=== PATIENT | male | born 1965 | race Two or more races ===

== ENCOUNTER 2020-07-08 11:17 | Outpatient (CLI) | payer OTHER | END 2020-07-08 11:23 | disposition home or self-care (01) | LOC: NUCLEAR 11:17 | PROVIDERS: ATTEND Specialist | DX: I73.9 Peripheral vascular disease, unspecified (principal); M79.0 Rheumatism, unspecified ==

== ENCOUNTER 2020-07-09 13:50 | Outpatient (CLI) | payer OTHER | END 2020-07-09 14:27 | disposition home or self-care (01) | LOC: LAB 13:50 | PROVIDERS: ATTEND Physical Medicine & Rehabilitation | DX: Z20.828 Contact with and (suspected) exposure to other viral communicable diseases (principal); Z11.59 Encounter for screening for other viral diseases ==

== ENCOUNTER 2020-07-14 11:15 | Outpatient (CLI) | payer OTHER | END 2020-07-14 12:00 | disposition home or self-care (01) | LOC: MRI 11:15 | PROVIDERS: ATTEND Physical Medicine & Rehabilitation | DX: G93.89 Other specified disorders of brain (principal) | CPT/HCPCS: 70551 ==

== ENCOUNTER → 2020-07-22 | Outpatient (CLI) | payer OTHER | END | disposition home or self-care (01) | LOC: MRI 10:46 | PROVIDERS: ATTEND Dentist Oral and Maxillofacial Surgery | DX: M48.02 Spinal stenosis, cervical region (principal); M50.20 Other cervical disc displacement, unspecified cervical region | CPT/HCPCS: 72141 ==

== ENCOUNTER → 2020-07-28 | Outpatient (CLI) | payer OTHER | END | disposition home or self-care (01) | LOC: TOM 08:57 | PROVIDERS: ATTEND Neurological Surgery | DX: M47.892 Other spondylosis, cervical region (principal); M48.061 Spinal stenosis, lumbar region without neurogenic claudication ==

== ENCOUNTER 2020-08-04 10:42 | Outpatient (CLI) | payer OTHER | END 2020-08-04 10:46 | disposition home or self-care (01) | LOC: LAB 10:42 | PROVIDERS: ATTEND Emergency Medicine Pediatric Emergency Medicine | DX: Z03.818 Encounter for observation for suspected exposure to other biological agents ruled out (principal) ==

== ENCOUNTER 2020-09-03 11:36 | Outpatient (CLI) | payer OTHER | END 2020-09-03 12:04 | disposition home or self-care (01) | LOC: NUCLEAR 11:36 | PROVIDERS: ATTEND Orthopaedic Surgery | DX: M85.89 Other specified disorders of bone density and structure, multiple sites (principal); M50.00 Cervical disc disorder with myelopathy, unspecified cervical region; M50.10 Cervical disc disorder with radiculopathy, unspecified cervical region ==

== ENCOUNTER → 2020-09-03 | Outpatient (CLI) | payer OTHER | END | disposition home or self-care (01) | LOC: TOM 10:59 | PROVIDERS: ATTEND Orthopaedic Surgery | DX: M47.892 Other spondylosis, cervical region (principal); M50.00 Cervical disc disorder with myelopathy, unspecified cervical region; M50.10 Cervical disc disorder with radiculopathy, unspecified cervical region ==

== ENCOUNTER 2020-10-05 11:09 | Outpatient (CLI) | payer OTHER | END 2020-10-05 11:14 | disposition home or self-care (01) | LOC: NUCLEAR 11:09 | PROVIDERS: ATTEND Physical Medicine & Rehabilitation | DX: I35.0 Nonrheumatic aortic (valve) stenosis (principal); R10.12 Left upper quadrant pain; I71.01 Dissection of thoracic aorta ==

== ENCOUNTER → 2020-11-08 | Outpatient (CLI) | payer OTHER | END | disposition home or self-care (01) | LOC: RAD 09:46 | PROVIDERS: ATTEND Orthopaedic Surgery | DX: M50.00 Cervical disc disorder with myelopathy, unspecified cervical region (principal); M50.10 Cervical disc disorder with radiculopathy, unspecified cervical region ==

== ENCOUNTER → 2020-12-31 | Outpatient (CLI) | payer OTHER | END | disposition home or self-care (01) | LOC: RAD 13:49 | PROVIDERS: ATTEND Orthopaedic Surgery | DX: M50.00 Cervical disc disorder with myelopathy, unspecified cervical region (principal); M50.10 Cervical disc disorder with radiculopathy, unspecified cervical region ==

== ENCOUNTER 2021-04-07 08:38 | Outpatient (CLI) | payer OTHER | END 2021-04-07 08:43 | disposition home or self-care (01) | LOC: TOM 08:38 | PROVIDERS: ATTEND Orthopaedic Surgery | DX: M50.00 Cervical disc disorder with myelopathy, unspecified cervical region (principal); M50.10 Cervical disc disorder with radiculopathy, unspecified cervical region ==

== ENCOUNTER 2021-05-03 13:02 | Outpatient (CLI) | payer OTHER | END 2021-05-03 14:02 | disposition home or self-care (01) | LOC: PPH VACUNA 13:02 | PROVIDERS: ATTEND Emergency Medicine Pediatric Emergency Medicine | DX: Z23 Encounter for immunization (principal) ==

== ENCOUNTER 2021-07-27 10:54 | Outpatient (CLI) | payer OTHER | END 2021-07-27 10:58 | disposition home or self-care (01) | LOC: LAB 10:54 | DX: Z03.818 Encounter for observation for suspected exposure to other biological agents ruled out (principal) ==

== ENCOUNTER 2024-06-25 09:08 | Outpatient (CLI) | payer OTHER | END 2024-06-25 09:30 | disposition home or self-care (01) | LOC: SONOGRAMA 09:08 | PROVIDERS: ATTEND Internal Medicine Endocrinology, Diabetes & Metabolism | DX: E04.1 Nontoxic single thyroid nodule (principal) ==

== ENCOUNTER 2024-09-10 12:00 | Inpatient (IN) | payer OTHER ==
[~2024-09-10] VITALS: Ht 177.8 cm; Wt 85.3 kg
[2024-09-10] MEDS ORDERED: NITROGLYCERIN IN 5 % DEXTROSE 50 MG/250 ML BOTTLE IV ONE (12:30)
[2024-09-10] MEDS ORDERED: 0.9 % SODIUM CHLORIDE 1,000 ML IV SCH ×2 (12:45→19:15)
[2024-09-10] MEDS ORDERED: ASPIRIN 325 MG TABLET PO ONE (12:45)
[2024-09-10] MEDS ORDERED: NITROGLYCERIN 250 ML IV SCH (12:45)
[2024-09-10] MEDS ORDERED: TICAGRELOR 90 MG TABLET PO ONE (12:45)
[2024-09-10] MEDS ORDERED: COZAAR25 MG PO (12:53)
[2024-09-10 13:41] LABS: HEMATOCRIT 44.2 % (36.0-45.00); MEAN CORPUSCULAR HEMOGLOBIN 34.5 pg (27.00-32.0); MEAN CORPUSCULAR HGB CONC 33.9 g/dl (32.0-36.0); PLATELET COUNT 183 K/uL (150-450); RED BLOOD COUNT 4.34 M/uL (4.00-6.00); RED CELL DISTRIBUTION WIDTH 14.3 % (11.5-14.5)
[2024-09-10] MEDS ORDERED: NITROGLYCERIN IN 5 % DEXTROSE 250 ML IV SCH (13:45)
[2024-09-10 13:57] LABS: INR 0.96; PARTIAL THROMBOPLASTIN TIME 26.3 SECONDS (22.0-34.0); PROTHROMBIN TIME 10.5 SECONDS (9.0-11.5)
[2024-09-10 14:28] LABS: BILIRUBIN TOTAL 1.82 mg/dL (0.3-1.2); CALCIUM 9.9 mg/dL (8.5-10.1); CREATININE SERUM 0.9 mg/dL (0.55-1.02); GFR 64.31; GLOBULINA 2.8 G/DL (2.4-3.5); POTASSIUM 4.56 mEq/L (3.5-5.1); TOTAL PROTEIN 6.8 gm/dL (6.4-8.2)
[2024-09-10] MEDS ORDERED: ASPIRIN 81 MG TAB.CHEW PO SCH (19:18)
[2024-09-10] MEDS ORDERED: ATORVASTATIN CALCIUM 40 MG TABLET PO SCH (19:18)
[2024-09-10] MEDS ORDERED: METOPROLOL SUCCINATE 25 MG TAB.SR.24H PO SCH (19:23)
[2024-09-10] MEDS ORDERED: METOPROLOL TARTRATE 25 MG TABLET PO ONE (19:24)
[2024-09-10] MEDS ORDERED: DEXTROSE 50 % IN WATER 0.5 G/ML DISP.SYRIN IV PRN (19:30)
[2024-09-10] MEDS ORDERED: ACETAMINOPHEN 500 MG GEL..CAP PO PRN (19:30)
[2024-09-10] MEDS ORDERED: INSULIN LISPRO 1,000 UNIT/10 ML UNITS SUBCUTANEO PRN (19:30)
[2024-09-10 20:51] VITALS: BP 126/69; O2SAT 98
[2024-09-10 20:56] VITALS: BP 126/69
[2024-09-10 23:30] VITALS: BP 137/82; O2SAT 98
[2024-09-10 23:35] LABS: URINE APPEARANCE Clear; URINE BILIRRUBIN Negative (NEGATIVE); URINE BLOOD Negative; URINE COLOR Yellow; URINE LEUKOCYTE Negative; URINE NITRATE Negative; URINE PROTEIN Negative (NEGATIVE); URINE UROBILINOGEN 0.2 E.U./dl
[2024-09-10 23:45] LABS: URINE BACTERIA 2.4 uL (0.0-1933); URINE EPITHELIAL CELLS 0.4 uL (0.0-38.8); URINE GLUCOSE >=1000 MG/DL (NEGATIVE); URINE KETONE >=160 (NEGATIVE); URINE RBC 0.1 uL (0.0-20.8); URINE WBC 0.6 uL (0.0-23.2)
[2024-09-11 03:00] VITALS: BP 122/75; O2SAT 97
[2024-09-11 05:38] LABS: CHOL HDL RATIO 1.8 (0-5.0); TSH 2.33 uIU/mL (0.358-3.74)
[2024-09-11 07:21] VITALS: BP 151/73; O2SAT 100
[2024-09-11] MEDS ORDERED: LOSARTAN POTASSIUM 25 MG TABLET PO SCH (09:00)
[2024-09-11] MEDS ORDERED: FAMOTIDINE/PF 20 MG in 0.9 % SODIUM CHLORIDE 8 ML IV PUSH SCH (09:00)
[2024-09-11] MEDS ORDERED: ENOXAPARIN SODIUM 40 MG/0.4 ML SYRINGE SUBCUTANEO SCH (09:00)
[2024-09-11 17:25] VITALS: BP 142/83; O2SAT 98
[2024-09-11 17:45] VITALS: O2SAT 100
[2024-09-11 20:04] VITALS: O2SAT 99
[2024-09-12 00:53] VITALS: O2SAT 99
[2024-09-12 02:02] VITALS: BP 117/77; O2SAT 98
[2024-09-12 03:47] VITALS: O2SAT 98
[2024-09-12 09:48] VITALS: O2SAT 98
[2024-09-12 12:30] VITALS: BP 138/90
== END 2024-09-12 14:15 | disposition home or self-care (01) | DRG 307 ==
LOC: ER 12:00 → MEDJ 19:29 → SEC-K 19:29 → EDSEX 19:29 → MEDJ 19:53 → SEC-K 09-11 07:09 → MEDJ 09-11 11:49
PROVIDERS: General Practice; ADMIT Internal Medicine; ATTEND Internal Medicine
PROC: BW28ZZZ Computerized Tomography (CT Scan) of Head (ICD-10-PCS; principal; 2024-09-10)
PROC: BW38ZZZ Magnetic Resonance Imaging (MRI) of Head (ICD-10-PCS; 2024-09-10)
PROC: B24BZZZ Ultrasonography of Heart with Aorta (ICD-10-PCS; 2024-09-10)
PROC: B345ZZZ Ultrasonography of Bilateral Common Carotid Arteries (ICD-10-PCS; 2024-09-11)
PROC: 4A12X4Z Monitoring of Cardiac Electrical Activity, External Approach (ICD-10-PCS; 2024-09-11)
DX: I35.0 Nonrheumatic aortic (valve) stenosis (principal); R55 Syncope and collapse; I65.22 Occlusion and stenosis of left carotid artery; E11.649 Type 2 diabetes mellitus with hypoglycemia without coma; I10 Essential (primary) hypertension; E78.5 Hyperlipidemia, unspecified; Z79.4 Long term (current) use of insulin; I11.9 Hypertensive heart disease without heart failure
CPT/HCPCS: 70544

== ENCOUNTER 2024-11-19 08:32 | Outpatient (CLI) | payer OTHER ==
[~2024-11-19 08:32] MED LIST: COZAAR25 MG PO
== END 2024-11-19 09:00 | disposition home or self-care (01) ==
LOC: SONOGRAMA 08:32
PROVIDERS: ATTEND Internal Medicine Endocrinology, Diabetes & Metabolism
DX: E04.1 Nontoxic single thyroid nodule (principal)

== ENCOUNTER 2024-12-24 11:06 | Outpatient (CLI) | payer OTHER | END 2024-12-24 11:30 | disposition home or self-care (01) | LOC: TOM 11:06 | PROVIDERS: ATTEND Orthopaedic Surgery | DX: M50.10 Cervical disc disorder with radiculopathy, unspecified cervical region (principal); M50.00 Cervical disc disorder with myelopathy, unspecified cervical region ==

== ENCOUNTER 2025-02-18 07:17 | Outpatient (CLI) | payer OTHER | END 2025-02-18 07:20 | disposition home or self-care (01) | LOC: TOM 07:17 | PROVIDERS: ATTEND Internal Medicine Cardiovascular Disease | DX: I71.22 Aneurysm of the aortic arch, without rupture (principal) | CPT/HCPCS: 71275 ==